=== PATIENT | male | born 1975 | race Caucasian/White ===

== ENCOUNTER → 2021-02-09 12:09 | Outpatient (CLI) | payer OTHER, SELFPAY ==
[2021-02-09 14:58] LABS: Coronavirus 19 IgG Antibody Positive (Negative); Coronavirus 19 IgM Antibody Negative (Negative)
== END ==
PROVIDERS: Visit Provider Internal Medicine Gastroenterology
DX: Z01.818 Encounter for other preprocedural examination (principal); Z20.822 Contact with and (suspected) exposure to COVID-19; Z12.11 Encounter for screening for malignant neoplasm of colon; K62.5 Hemorrhage of anus and rectum
CPT/HCPCS: 36415; 86328

== ENCOUNTER 2021-02-11 09:13 | Day surgery (SDC) | payer OTHER, SELFPAY ==
[2021-02-08 09:57] VITALS: BMI 27.6
[2021-02-11 09:31] VITALS: BP 143/88; PULSE 64; RESP 18; TEMP 36; O2SAT 98
--- NOTE | 2021-02-11 09:47 | HMH.ANESCL ---
[facility] Anesthesia Checklist - Patient Identification Patient Identification: Arm Band - Structural Data Admitted From: Home Planned Operative Procedure/s: colonoscopy Consent for Planned Operative Procedure(s) Verified: Yes Verified Documents: Surgical Consent, History and Physical - NPO Status Verified Time NPO: 00:00 - Additional verifications Anesthesia Reactions: No - Airway Assessment C-Spine Mobility Assessed: Yes (mp2) TMJ Mobility Assessed: Yes Dentition: Good Dentition - Neurological Assessment Level of Consciousness: Awake, Alert - Anesthesia Plan Anesthesia Risk discussed: Yes Anesthesia Plan: Verified ASA Class: II Anesthesia Type: MAC [facility] History I have reviewed the patient's past medical history: Yes Medical History: Reports:: Anxiety, Hyperlipidemia, Hypertension Denies:: Cancer, Diabetes Mellitus Type 1, Diabetes Mellitus Type 2, Internal Pacemaker, MRSA, Seizures *Have you ever received a pneumonia vaccine?: No *Have you received a flu vaccine this season?: No Anesthesia experience/problems:: nac Other Surgeries: Yes: Colonoscopy. No: Pacemaker Amputation: No - *Social History Last grade of school completed: Advanced degree Smoking Status: Never smoker Alcohol Intake: current Alcohol Intake Frequency:: a few times a month Substance Use Type: denies use *Occupational Status:: employed Housing: house Household Members: spouse, family *Travel in the last 8 weeks: Inside the [place] Family Hx:: No significant family history
[2021-02-11 09:48] VITALS: O2SAT 98
--- NOTE | 2021-02-11 09:50 | HMH.PROC ---
[facility] Procedure Note Procedure Note:: Colonoscopy Procedure Report: Colonoscopy with cold snare polypectomy and monopolar ablation/coagulation of internal hemorrhoids Endoscopist: Barrington Tellez II, MD Referring physician: Ronnie Del Toro MD Date of Procedure: February 11, 2021 Equipment: Olympus 190 variable stiffness pediatric colonoscope Sedation: MAC sedation Indication: Mr. Falcon is a 45-year-old gentleman who has had intermittent hemorrhoidal bleeding which is streaking the outside of his bowel movement. More recently, he did have a bout of more increased bright red rectal bleeding. He reports no abdominal pain, weight loss, change in his bowel habits or family history of colon cancer. He did have a colonoscopy at age 37 (in [place]) because of left-sided abdominal pain and bleeding. He was told that he had colonic spasm related to spicy foods. He is here for diagnostic colonoscopy. Procedure: Prior to the procedure, a history and physical exam was performed, and patient's medications and allergies were reviewed. The risks, benefits and alternatives of the sedation and procedure were discussed with the patient. All questions were answered and informed consent was obtained. The patient was brought to the procedure room. Patient identification and proposed procedure were verified by the physician and the nurse. The patient was placed in a left lateral decubitus position and the scope was passed under direct vision. Throughout the procedure, the patient's blood pressure, pulse, and oxygen saturations were monitored continuously. The colonoscopy was accomplished without difficulty. The patient tolerated the procedure well. Findings: On digital rectal examination there was normal rectal tone. There were no external hemorrhoids. The prostate was 2+, smooth, soft, symmetric without nodules. The colonoscope was introduced through the anal canal to the rectum and advanced to the cecum. The ileocecal valve and appendiceal orifice were identified. The scope was advanced a short distance into the ileum which appeared grossly normal. The scope was then withdrawn into the colon. There was a single 4 to 5 mm ascending colon polyp removed via cold snare polypectomy. The remaining cecum, ascending, transverse, descending, sigmoid and rectum were grossly normal. There were no mucosal abnormalities identified. Upon retroflexion within the rectum there were grade 1-2 internal hemorrhoids. 3 of the columns of hemorrhoids were ablated/coagulated using monopolar current to destruction. The preparation was excellent throughout with [place] Preparation Score of 9. The cecal time was 12 minutes. Impression: 1. Diminutive ascending colon polyp 2. Grade 1-2 internal hemorrhoids status post monopolar ablation/coagulation Plan: I will follow up the polyp histology and recommend repeat screening/surveillance colonoscopy again in in 5 to 7 years (if polyp is adenomatous). I would encourage bulk fiber supplementation on a long-term daily maintenance basis.
[2021-02-11 10:12] VITALS: BP 108/75; PULSE 60; RESP 18; TEMP 36.1; O2SAT 96
[2021-02-11 10:22] VITALS: BP 107/70; PULSE 57; RESP 18; O2SAT 94
[2021-02-11 10:32] VITALS: BP 121/80; PULSE 52; RESP 18; O2SAT 98
[2021-02-11 10:47] VITALS: BP 127/85; PULSE 60; RESP 18; O2SAT 99
== END 2021-02-11 10:48 | disposition home or self-care (01) ==
LOC: OUTP 09:17
PROVIDERS: PCP Ophthalmology; Visit Provider Internal Medicine Gastroenterology
PROC: 0DJD8ZZ Inspection of Lower Intestinal Tract, Via Natural or Artificial Opening Endoscopic (ICD-10-PCS; CPT 45378; principal; 2021-02-11 10:00)
DX: K63.5 Polyp of colon (principal); K64.0 First degree hemorrhoids; E78.5 Hyperlipidemia, unspecified; I10 Essential (primary) hypertension; F41.9 Anxiety disorder, unspecified; Z79.899 Other long term (current) drug therapy
CPT/HCPCS: 45385; 46930